=== PATIENT | female | born 1975 ===

== ENCOUNTER 2017-12-19 10:16 | Emergency (ER) | payer BC ==
[~2017-12-19] VITALS: Ht 152.4 cm; Wt 77.1 kg
[2017-12-19 10:26] VITALS: TEMP 98.2
[2017-12-19 11:14] LABS: PLATELET COUNT 540 K/uL (152-353)
[2017-12-19 13:43] VITALS: BP 132/87
== END 2017-12-19 13:44 | disposition home or self-care (01) ==
LOC: ED 10:16
PROVIDERS: Family Medicine
DX: R51 Headache (principal); R41.3 Other amnesia; W19.XXXA Unspecified fall, initial encounter
CPT/HCPCS: 36415; 80053; 85027; 96374; 96375; 99284; J1170; J2550